=== PATIENT | female | born 2000 ===

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

== ENCOUNTER → 2022-10-11 | Outpatient (REF) | payer OTHER ==
[2022-10-11 22:42] LABS: HCG, SERUM QUANTITATIVE < 1.0 MIU/ML
[2022-10-11 23:02] LABS: HCG, SERUM QUALITATIVE NEGATIVE (NEGATIVE)
== END ==
LOC: M LAB REF 21:53
PROVIDERS: ATTEND Physician Assistant Medical
DX: Z32.00 Encounter for pregnancy test, result unknown (principal)